=== PATIENT | male | born 1975 | race Two or more races ===

== ENCOUNTER 2017-02-01 13:35 | Emergency (ER) | payer SELFPAY ==
[~2017-02-01] VITALS: Ht 180.3 cm; Wt 94.3 kg
--- NOTE | 2017-02-01 14:03 | Emergency Room Report ---
History of Present Illness General Chief Complaint: Chest Pain Source: Patient Present Illness HPI Patient's 41-year-old male who presented after having increased chest pain since proximal was 6 hours prior to arrival. Patient had no prior history of medical conditions. Patient was noted to have left-sided chest tightness which radiated to his neck and arm and leg. he had associated headache. The patient had noted to have increased pain to his chest is unchanged by exertion or deep breath. The patient also reported having some outbreak to his upper lip on the right side which began this morning Allergies: Coded Allergies: No Known Allergies (Unverified , 02/01/17) Patient History Past Medical History: see triage record Reviewed Nursing Documentation: PMH: Agreed, PSxH: Agreed Nursing Documentation-PMH Past Medical History: No Stated History Review of Systems All Other Systems: negative except mentioned in HPI Physical Exam Vital Signs Date Time Temp Pulse Resp B/P Pulse Ox O2 Delivery O2 Flow Rate FiO2 02/01/17 13:44 97.9 66 18 129/80 100 Room Air Sp02 EP Interpretation: reviewed, normal General Appearance: normal inspection, well appearing, no apparent distress, alert, GCS 15 Head: atraumatic ENT: normal ENT inspection, hearing grossly normal, normal voice, other - lip vesicular rash Neck: normal inspection, full range of motion, supple, no bony tend Respiratory: normal inspection, lungs clear, normal breath sounds, no respiratory distress, no retraction, no wheezing Cardiovascular #1: regular rate, rhythm, no edema Gastrointestinal: normal inspection, normal bowel sounds, non tender, soft, no guarding, no hernia Genitourinary: no CVA tenderness Musculoskeletal: normal inspection, back normal, normal range of motion Neurologic: normal inspection, alert, oriented x3, responsive, plastics process hand III-XII nml as tested, speech normal Psychiatric: normal inspection, judgement/insight normal, mood/affect normal Skin: normal inspection, normal color, no rash Medical Decision Making Diagnostic Impression: Primary Impression: Chest pain Qualified Codes: R07.9 - Chest pain, unspecified Additional Impression: Herpes labialis ER Course Differential diagnosis included but was not limited to acute coronary syndrome, pulmonary embolism, pneumonia, aortic dissection, shingles, pneumothorax, aortic dissection, esophageal rupture, pericarditis. Because of complexity of patient's case laboratory testing and imaging studies were ordered. EKG interpreted by me showed normal sinus rhythm with a rate of [address] or T wave changes.Chest x-ray was unremarkable. The patient's laboratory testing was unremarkable. The patient was observed in the emergency department. Patient was noted to have normal blood pressure as well as heart rate. The patient was advised to recheck with his primary care physician in one to 2 days.Patient was advised that he would need outpatient cardiac testing. Labs Test 02/01/17 13:53 White Blood Count 7.5 K/UL (4.8-10.8) Red Blood Count 4.88 M/UL (4.70-6.10) Hemoglobin 14.5 G/DL (14.2-18.0) Hematocrit 43.4 % (42.0-52.0) Mean Corpuscular Volume 89 FL (80-99) Mean Corpuscular Hemoglobin 29.6 PG (27.0-31.0) Mean Corpuscular Hemoglobin Concent 33.3 G/DL (32.0-36.0) Red Cell Distribution Width 11.7 % (11.6-14.8) Platelet Count 212 K/UL (150-450) Mean Platelet Volume 9.6 FL (6.5-10.1) Neutrophils (%) (Auto) 42.7 % (45.0-75.0) Lymphocytes (%) (Auto) 45.2 % (20.0-45.0) Monocytes (%) (Auto) 7.4 % (1.0-10.0) Eosinophils (%) (Auto) 3.7 % (0.0-3.0) Basophils (%) (Auto) 1.0 % (0.0-2.0) Sodium Level 138 mEQ/L (135-145) Potassium Level 3.8 mEQ/L (3.4-4.9) Chloride Level 99 mEQ/L (98-107) Carbon Dioxide Level 22 mEQ/L (20-30) Anion Gap 17 (5-15) Blood Urea Nitrogen 13 mg/dL (7-23) Creatinine 0.8 mg/dL (0.7-1.2) Estimat Glomerular Filtration Rate > 60 mL/min (>60) Glucose Level 96 mg/dL (74-106) Calcium Level 9.5 mg/dL (8.6-10.2) Total Bilirubin 0.4 mg/dL (0.0-1.2) Aspartate Amino Transf (AST/SGOT) 29 U/L (5-40) Alanine Aminotransferase (ALT/SGPT) 33 U/L (3-41) Alkaline Phosphatase 81 U/L (40-129) Total Creatine Kinase 558 U/L (38-174) Creatine Kinase MB 9.6 ng/mL (< 6.7) Creatine Kinase MB Relative Index 1.7 Troponin I < 0.30 ng/mL (<=0.30) Total Protein 7.3 g/dL (6.6-8.7) Albumin 4.4 g/dL (3.5-5.2) Globulin 2.9 g/dL Albumin/Globulin Ratio 1.5 (1.0-2.7) EKG Diagnostic Results Rate: normal Rhythm: NSR ST Segments: no acute changes ASA given to the pt in ED: Yes Rhythm Strip Diag. Results EP Interpretation: yes Rhythm: NSR - 64, no PVC's, no ectopy Chest X-Ray Diagnostic Results Chest X-Ray Diagnostic Results : Chest X-Ray Ordered: No EP Interpretation: No Interpretation: no consolidation, no effusion, no pneumothorax, no acute cardiopulmonary disease, other - old granulomatous disease Indication: Chest Pain Impression: No acute disease Last Vital Signs Date Time Temp Pulse Resp B/P Pulse Ox O2 Delivery O2 Flow Rate FiO2 02/01/17 13:44 97.9 66 18 129/80 100 Room Air Status: improved Disposition: HOME, SELF-CARE Condition: Stable Scripts Ibuprofen* (MOTRIN*) 600 Mg Tablet 600 MG ORAL Q8H Y for For Pain, #30 TAB 0 Refills Prov: Samm Lowe 02/01/17 Acyclovir* (ACYCLOVIR*) 400 Mg Tablet 400 MG ORAL FIVE TIMES A DAY, #35 TAB Prov: Samm Lowe 02/01/17 Referrals: NOT CHOSEN IPA/,REFERRING (PCP) Samm Lowe Feb 01, 2017 14:03
[2017-02-01 14:11] LABS: EOSINOPHILS % (AUTO) 3.7 % (0.0-3.0); LYMPHOCYTES % (AUTO) 45.2 % (20.0-45.0); MEAN CORPUSCULAR HEMOGLOBIN 29.6 PG (27.0-31.0); MEAN CORPUSCULAR HGB CONC 33.3 G/DL (32.0-36.0); MEAN CORPUSCULAR VOLUME 89 FL (80-99); MEAN PLATELET VOLUME 9.6 FL (6.5-10.1); MONOCYTES % (AUTO) 7.4 % (1.0-10.0); NEUTROPHILS % (AUTO) 42.7 % (45.0-75.0); PLATELET COUNT 212 K/UL (150-450); RED BLOOD COUNT 4.88 M/UL (4.70-6.10); RED CELL DISTRIBUTION WIDTH 11.7 % (11.6-14.8); WHITE BLOOD COUNT 7.5 K/UL (4.8-10.8)
[2017-02-01 14:14] VITALS: BP 145/101
[2017-02-01] MEDS ORDERED: Aspirin Baby 81mg ORAL ONE (14:15)
[2017-02-01 14:21] LABS: ALANINE AMINOTRANSFERASE 33 U/L (3-41); ALBUMIN/GLOBULIN RATIO 1.5 (1.0-2.7); ANION GAP 17 (5-15); ASPARTATE AMINO TRANSFERASE 29 U/L (5-40); CALCIUM 9.5 mg/dL (8.6-10.2); CARBON DIOXIDE 22 mEQ/L (20-30); CHLORIDE 99 mEQ/L (98-107); CREATININE 0.8 mg/dL (0.7-1.2); GLOMERULAR FILTRATION RATE > 60 mL/min (>60); HEMOLYSIS 7; POTASSIUM 3.8 mEQ/L (3.4-4.9); SODIUM 138 mEQ/L (135-145); TOTAL PROTEIN 7.3 g/dL (6.6-8.7); TROPONIN I < 0.30 ng/mL (<=0.30)
[2017-02-01 14:32] LABS: CKMB 9.6 ng/mL (< 6.7)
[2017-02-01] MEDS ORDERED: ACYCLOVIR400 MG ORAL (14:54)
[2017-02-01] MEDS ORDERED: IBUPROFEN600 MG ORAL (14:54)
--- NOTE | 2017-02-01 15:01 | Diagnostic Imaging Report ---
Indications: A Technique: Spiral acquisitions obtained through the brain. Angled axial and coronal 5 x 5 mm slices were reconstructed. Total dose length product 1379 mGycm. CTDI vol(s) 70 mGy. Dose reduction achieved using automated exposure control Comparison: None Findings: No acute hemorrhage or edema. No mass effect or midline shift. There is slight frontal cortical volume loss. Otherwise normal size ventricles and extra-axial CSF spaces. Normal lopez-white differentiation. There is filling of the sphenoid sinus by polyposis or a mucous retention cyst. There is also bilateral ethmoid mucosal disease. The calvarium is intact. Impression: Negative for acute intracranial bleed or mass effect Mild frontal cortical volume loss This agrees with the preliminary interpretation provided by the emergency room physician The CT scanner at [facility] is accredited by the [employer] and the scans are performed using protocols designed to limit radiation exposure to as low as reasonably achievable to attain images of sufficient resolution adequate for diagnostic evaluation.
--- NOTE | 2017-02-01 15:03 | Diagnostic Imaging Report ---
Indication: Chest pain Technique: One view of the chest Comparison: none Findings: Lungs and pleural spaces are clear. Heart size is normal. Questionable calcified granuloma at the left lung base Impression: Possible old granulomatous disease. No acute process
[2017-02-01 15:12] VITALS: BP 145/101
--- NOTE | 2017-02-03 11:18 | Cardiology Report ---
APPROVED REPORT EKG Measurement Heart [id number] Normal sinus rhythm with sinus arrhythmia Normal ECG
== END 2017-02-01 15:13 | disposition home or self-care (01) ==
LOC: EMR 14:00
DX: R07.9 Chest pain, unspecified (principal); B00.1 Herpesviral vesicular dermatitis
CPT/HCPCS: 36415; 70450; 71010; 80053; 82550; 82553; 84484; 85025; 93005; 99284